=== PATIENT | female | born 1995 | race Caucasian/White ===

== ENCOUNTER 2016-09-17 02:15 | Emergency (ER) | payer MEDICAID ==
[2016-09-17] MEDS ORDERED: DIAZEPAM 5 MG TABLET PO ONE (02:34)
[2016-09-17] MEDS ORDERED: NAPROXEN 250 MG TABLET PO ONE (02:34)
--- NOTE | 2016-09-17 02:39 | Emergency Department Record ---
History of Present Illness - General Chief Complaint: Back Pain/Injury Stated Complaint: BACK PAIN Time Seen by Provider: 09/17/16 02:33 Source: Patient Mode of Arrival: Ambulatory Limitations: No limitations - History of Present Illness Initial Comments: 21 yo female presents to ED with a 1-hour history of upper left back pain. Patient denies any form of injury or trauma, but reports that her symptoms began while getting into bed. Patient denies previous history of symptoms and denies health problems at her baseline. Patient denies urinary symptoms. MD Complaint: Back pain Onset/Timin -: Hour(s) Similar Symptoms Previously: No Place: Home Radiation: Flank Severity: Moderate Severity scale (1-10): 7 Quality: Sharp, Stabbing Consistency: Constant Improves With: Other Worsens With: Movement Context: Unknown Associated Symptoms: Numbness, Shortness of breath Treatments Prior to Arrival: Heat therapy - Related Data Previous Rx's Medication Instructions Recorded Diazepam [Valium] 5 mg PO Q8H PRN #15 tab 09/17/16 Naproxen [Naprosyn] 500 mg PO Q12H #30 tab. 09/17/16 Allergies Allergy/AdvReac Type Severity Reaction Status Date / Time No Known Drug Allergies Allergy Verified 09/17/16 02:17 Travel Screening - Travel/Exposure Within Last 30 Days Have you traveled within the last 30 days?: No - Travel/Exposure Within Last Year Have you traveled outside the [place] in the last year?: No - Additonal Travel Details Have you been exposed to anyone with a communicable illness?: No Review of Systems Constitutional: Denies: Chills, Fever, Malaise, Night sweats Eyes: Denies: Eye discharge, Eye pain ENT: Denies: Congestion, Ear pain, Epistaxis Respiratory: Denies: Cough, Dyspnea Cardiovascular: Denies: Chest pain, Dyspnea on exertion Endocrine: Denies: Fatigue, Heat or cold intolerance Gastrointestinal: Denies: Abdominal pain, Nausea, Vomiting Genitourinary: Denies: Dysuria, Frequency, Hematuria, Incontinence Musculoskeletal: Reports: Back pain. Denies: Arthralgia, Gout, Joint swelling Skin: Denies: Bruising, Change in color, Change in hair/nails Neurological: Denies: Abnormal gait, Confusion, Headache, Seizure Psychiatric: Denies: Anxiety Hematological/Lymphatic: Denies: Anemia, Blood Clots Past Medical History - SOCIAL HISTORY Smoking Status: Never smoker Alcohol Use: Occassional Drug Use: None - RESPIRATORY Hx Respiratory Disorders: No - CARDIOVASCULAR Hx Cardio Disorders: No - NEURO Hx Neuro Disorders: No - GI Hx GI Disorders: No - Hx Genitourinary Disorders: No - ENDOCRINE Hx Endocrine Disorders: No - MUSCULOSKELETAL Hx Musculoskeletal Disorders: No - PSYCH Hx Psych Problems: No - HEMATOLOGY/ONCOLOGY Hx Hematology/Oncology Disorders: No Family Medical History Any Significant Family History?: Yes Hx Cancer: Mother *Cancer Comment: ovarian tumors Hx Dementia: Grandparents *Dementia Comment: Alzheimer's, MGF Hx Diabetes: Grandparents *Diabetes Comment: MGF Hx Heart Disease: Grandparents *Heart Comment: PGF Hx HTN: Grandparents *HTN Comment: MGF Hx Stroke: Grandparents *Stroke Comment: MGM Physical Exam - General General Appearance: Alert, Oriented x3, Cooperative, Mild distress Limitations: No limitations - Head Head exam: Atraumatic, Normocephalic, Normal inspection Head exam detail: negative: Abrasion, Contusion, Baires's sign, General tenderness, Hematoma, Laceration - Eye Eye exam: Normal appearance. negative: Conjunctival injection, Periorbital swelling, Periorbital tenderness, Scleral icterus - ENT Ear exam: negative: Auricular hematoma, Auricular trauma Nasal Exam: negative: Active bleeding, Discharge, Dried blood, Foreign body Mouth exam: negative: Drooling, Laceration, Muffled voice, Tongue elevation - Neck Neck exam: Normal inspection. negative: Meningismus, Tenderness - Respiratory Respiratory exam: Normal lung sounds bilaterally. negative: Rales, Respiratory distress, Rhonchi, Stridor - Cardiovascular Cardiovascular Exam: Regular rate, Normal rhythm, Normal heart sounds - GI/Abdominal GI/Abdominal exam: Soft. negative: Rebound, Rigid, Tenderness - Rectal Rectal exam: Deferred - exam: Deferred - Extremities Extremities exam: Normal inspection. negative: Calf tenderness, Pedal edema, Tenderness - Back Back exam: Reports: Paraspinal tenderness, Other (TTP just medial to the left scapula and overlying the scapula on examination). Denies: CVA tenderness (R), CVA tenderness (L) - Neurological Neurological exam: Alert, Normal gait, Oriented X3. negative: Motor sensory deficit - Psychiatric Psychiatric exam: Normal affect, Normal mood - Skin Skin exam: Normal color. negative: Abrasion Type of lesion: negative: abrasion Course Vital Signs 09/17/16 02:18 Temperature 97.9 F Pulse Rate 94 H Respiratory 24 Rate Blood Pressure 124/82 Pulse Ox 98 - Reevaluation(s) Reevaluation #1: 09/17/16 03:46 Labs reviewed and are grossly unremarkable for an acute process. Reevaluation #2: 09/17/16 04:41 CTA Chest: No acute process Patient was updated on all results, reports improvement in her pain symptoms. Patient appears stable for discharge at this time. Medical Decision Making - Lab Data Result diagrams: 09/17/16 03:25 09/17/16 03:25 Disposition Disposition: Discharge Clinical Impression: Muscle strain Disposition: Home, Self-Care Condition: (2) Stable Instructions: Back Pain (ED) Additional Instructions: Return to ED if your symptoms worsen or if you have any concerns. Naprosyn and Valium as directed. Follow-up with your family doctor in 3-5 days as directed. Prescriptions: Naproxen [Naprosyn] 500 mg PO Q12H #30 tab. Diazepam [Valium] 5 mg PO Q8H PRN #15 tab PRN Reason: Pain - Moderate (5-7) Forms: Patient Portal Access Time of Disposition: 04:42
[2016-09-17] MEDS ORDERED: ONDANSETRON HCL IV 4 MG/2 ML VIAL IVP ONE (03:19)
[2016-09-17] MEDS ORDERED: MORPHINE SULFATE 5 MG/ML PFS IVP ONE (03:19)
[2016-09-17] MEDS ORDERED: 0.9 % SODIUM CHLORIDE 1000ML 1,000 ML IV SCH (03:30)
[2016-09-17 03:34] LABS: BASO % 0.3 % (0-6); EOS % 1.6 % (0-6); GRAN % 60.8 % (47-80); HEMATOCRIT 41.4 % (35.0-47.0); HEMOGLOBIN 13.6 gm/dl (11.6-16.0); LYMPH % 27.2 % (16-45); MEAN CELL VOLUME 87.5 fl (81-97); MEAN CORPUSCULAR HEMOGLOBIN 28.8 pg (27-33); MEAN CORPUSCULAR HGB CONC 32.9 g/dl (32-36); MEAN PLATELET VOLUME 9.9 fl (7.4-10.4); MONO % 10.1 % (0-9); PLATELET COUNT 367 K/uL (130-400); RED BLOOD COUNT 4.73 M/uL (3.80-5.40); RED CELL DISTRIBUTION WIDTH 13.4 % (11.5-14.5); URINE APPEARANCE CLEAR; URINE BILIRUBIN NEGATIVE (NEGATIVE); URINE BLOOD NEGATIVE (NEGATIVE); URINE COLOR YELLOW; URINE GLUCOSE (UA) NEGATIVE (NEGATIVE); URINE KETONE NEGATIVE (NEGATIVE); URINE LEUKOCYTE ESTERASE NEGATIVE (NEGATIVE); URINE NITRITE NEGATIVE (NEGATIVE); URINE PROTEIN TRACE (NEGATIVE); WHITE BLOOD COUNT W/O DIFF 8.7 K/uL (4.2-12.2)
[2016-09-17 03:35] LABS: HCG,QUALITATIVE URINE NEGATIVE (NEGATIVE)
[2016-09-17 03:45] LABS: ALB/GLOB RATIO 1.3 (1.1-1.8); ALBUMIN 4.4 gm/dL (3.5-5.0); ALKALINE PHOSPHATASE 46 U/L (38-126); ALT/SGPT 50 U/L (9-52); ANION GAP 13.4 (7-16); AST/SGOT 28 U/L (14-36); BILIRUBIN,TOTAL 0.46 mg/dL (0.2-1.3); BLOOD UREA NITROGEN 19 mg/dL (7-17); CARBON DIOXIDE 24.6 mmol/L (22-30); CREATININE 0.7 mg/dL (0.52-1.04); EST GLOMERULAR FILTRATION RATE > 60 ml/min; GLUCOSE,RANDOM 101 mg/dL (70-110); TOTAL PROTEIN 7.7 gm/dL (6.3-8.2)
== END 2016-09-17 04:53 | disposition home or self-care (01) ==
LOC: ER 02:15
DX: S29.012A Strain of muscle and tendon of back wall of thorax, initial encounter (principal); R20.0 Anesthesia of skin; R06.02 Shortness of breath; X58.XXXA Exposure to other specified factors, initial encounter; Y92.003 Bedroom of unspecified non-institutional (private) residence as the place of occurrence of the external cause
CPT/HCPCS: 99284 ×2; 96374; 96375; 85025; 80053; 81003; 81025; 71275; Q9967; J3490; J2405; J2270; J7030